=== PATIENT | female | born 1975 | race Caucasian/White ===

== ENCOUNTER 2017-08-03 12:42 | Emergency (ER) | payer MEDICAID ==
--- NOTE | 2017-08-03 11:59 | EDM.PDOCBH ---
ED HPI GENERAL MEDICAL PROBLEM - General Stated Complaint: PAIN Time Seen by Provider: 08/03/17 10:58 Source of Information: Reports: Patient, EMS History Limitations: Reports: Intoxication - History of Present Illness INITIAL COMMENTS - FREE TEXT/NARRATIVE: 41 y.o.w.f with a h/o of chronic ETOH abuse. ETOH liver disease, came to the ed after she was drinking whisky all day long. Pt denied any other acute medial issues. No family is present. BP 147/70 pulse 87 RR 18 Pulse ox 98% on RA Temp 36.6 Onset Date: 07/31/17 Onset Time: 07:00 Duration: Chronic, Intermittent Location: Reports: Generalized Quality: Reports: Other Improves with: Reports: Rest Worsens with: Reports: Movement Context: Reports: Other (chronic intermittant ETOH intoxiation) Lower back Pain Score (Numeric/FACES): 7 - Related Data Allergies Allergy/AdvReac Type Severity Reaction Status Date / Time No Known Allergies Allergy Verified 08/03/17 13:16 Home Meds: Home Meds Acetaminophen with Codeine [Tylenol with Codeine #3 Tablet] 1 each PO BID [History] Haloperidol [Haldol] 2 mg PO TID 08/03/17 [History] OLANZapine [ZyPREXA] 20 mg PO BEDTIME 08/03/17 [History] OXcarbazepine [Trileptal] 600 mg PO BID 08/03/17 [History] PARoxetine HCl [Paxil] 40 mg PO DAILY 08/03/17 [History] cloNIDine [Catapres] 0.2 mg PO BEDTIME 08/03/17 [History] ED ROS GENERAL - Review of Systems Review Of Systems: Unable To Obtain ED EXAM, BEHAVIORAL HEALTH - Physical Exam Exam: See Below Exam Limited By: Intoxication General Appearance: Alert, WD/WN, Mild Distress Eye Exam: Bilateral Eye: Normal Inspection Ears: Normal External Exam Nose: Normal Inspection Throat/Mouth: Normal Inspection, Normal Lips, Normal Voice, No Airway Compromise , Other (dry mucosal membrane) Head: Atraumatic, Normocephalic Neck: Normal Inspection, Supple, Non-Tender Respiratory/Chest: No Respiratory Distress, Lungs Clear, Normal Breath Sounds, No Accessory Muscle Use, Chest Non-Tender Cardiovascular: Normal Peripheral Pulses, Regular Rate, Rhythm, No Edema, No Gallop, No JVD, No Murmur, No Rub GI/Abdominal: Normal Bowel Sounds, Hepatomegaly (Female) Exam: Deferred Rectal (Female) Exam: Deferred Back Exam: Normal Inspection, Full Range of Motion Extremities: Normal Inspection, Normal Range of Motion, Non-Tender, No Pedal Edema, Normal Capillary Refill Neurological: Alert, Normal Mood/Affect, CN II-XII Intact, Oriented x 3, Memory Loss Recent Events Psychiatric: Alert, Normal Affect, Normal Cognition, Oriented, Flat Affect Skin Exam: Warm, Dry, Intact, Normal color, No rash COURSE, BEHAVIORAL HEALTH COMP - Course Vital Signs: Last Vital Signs Temp 36.8 C 08/03/17 16:36 Pulse 99 08/03/17 11:49 Resp 18 08/03/17 16:36 BP 141/76 H 08/03/17 16:36 Pulse Ox 97 08/03/17 16:36 41 y.o.w.f with a h/o of chronic ETOH abuse. ETOH liver disease, came to the ed after she was drinking whisky all day long. Pt denied any other acute medial issues. No family is present. BP 147/70 pulse 87 RR 18 Pulse ox 98% on RA Temp 36.6 PE: 41 y.o.w.f with h/o chronic ETOH Abuse and ETOH Liver disease, came to the ED intoxicated Labs: ETOH 0.19 CBC and BMP nl UDS neg Impression: Chronic ETOH abuse, H/O ETOH liver disease, ETOH intoxication Tx: NS Thyamin, Motrin Reexam: Improved Plan: D? with instructions by tax to [facility] detox Orders, Labs, Meds: Active Orders 24 hr Category Date Time Status DRUG SCREEN, URINE ALERE [URCHEM] Stat Lab 08/03/17 12:04 Ordered HCG QUALITATIVE,URINE [URCHEM] Stat Lab 08/03/17 12:04 Ordered UA W/MICROSCOPIC [URIN] Stat Lab 08/03/17 12:04 Ordered Sodium Chloride 0.9% [Normal Saline] 1,000 ml Med 08/03/17 12:00 Active IV .BOLUS Sodium Chloride 0.9% [Saline Flush] Med 08/03/17 13:00 Active 10 ml FLUSH ASDIRECTED PRN Saline Lock Insert [OM.PC] Routine Oth 08/03/17 13:00 Ordered Medication Orders Sodium Chloride (Normal Saline) 1,000 mls @ 999 mls/hr IV .BOLUS ALYX Last Admin: 08/03/17 13:00 Dose: 999 mls/hr Sodium Chloride (Saline Flush) 10 ml FLUSH ASDIRECTED PRN PRN Reason: Keep Vein Open Last Admin: 08/03/17 12:50 Dose: 10 ml Laboratory Tests 08/03/17 08/03/17 08/03/17 Range/Units 12:04 12:04 12:04 WBC (4.5-12.0) X10-3/uL RBC (3.23-5.20) x10(6)uL Hgb (11.5-15.5) g/dL Hct (30.0-51.3) % MCV (80-96) fL MCH (27.7-33.6) pg MCHC (32.2-35.4) g/dL RDW (11.5-15.5) % Plt Count (125-369) X10(3)uL MPV (7.4-10.4) fL Neut % (Auto) (46-82) % Lymph % (Auto) (13-37) % [place] % (Auto) (4-12) % Eos % (Auto) (1.0-5.0) % Baso % (Auto) (0-2) % Neut # (Auto) (1.6-8.3) # Lymph # (Auto) (0.6-5.0) # [place] # (Auto) (0.0-1.3) # Eos # (Auto) (0.0-0.8) # Baso # (Auto) (0.0-0.2) # Sodium (135-145) mmol/L Potassium (3.5-5.3) mmol/L Chloride (100-110) mmol/L Carbon Dioxide (21-32) mmol/L BUN (7-18) mg/dL Creatinine (0.55-1.02) mg/dL Est Cr Clr Drug Dosing Estimated GFR (MDRD) (>60) BUN/Creatinine Ratio (9-20) Glucose (80-116) mg/dL Calcium (8.6-10.2) mg/dL Urine Color Yellow (YELLOW) Urine Appearance Clear (CLEAR) Urine pH 7.0 H (5.0-6.5) Ur Specific [place] 1.010 (1.010-1.025) Urine Protein Negative (NEGATIVE) mg/dL Urine Glucose (UA) Normal (NEGATIVE) mg/dL Urine Ketones Negative (NEGATIVE) mg/dL Urine Occult Blood Negative (NEGATIVE) Urine Nitrite Negative (NEGATIVE) Urine Bilirubin Negative (NEGATIVE) Urine Urobilinogen 1 H (NEGATIVE) mg/dL Ur Leukocyte Esterase Negative (NEGATIVE) Urine WBC 0-5 (0) Ur Squamous Epith Cells Few H (NS,R,O) Urine Bacteria Moderate H (NS) Urine HCG, Qual Negative (NEGATIVE) Urine Opiates Screen Negative (NEGATIVE) Ur Oxycodone Screen Negative (NEGATIVE) Ur Propoxyphene Screen Negative (NEGATIVE) Ur Barbituates Screen Negative (NEGATIVE) Ur Tricyclics Screen Negative (NEGATIVE) Ur Phencyclidine Scrn Negative (NEGATIVE) Ur Amphetamine Screen Negative (NEGATIVE) Urine MDMA Screen Negative (NEGATIVE) U Benzodiazepines Scrn Negative (NEGATIVE) U Cocaine Metab Screen Negative (NEGATIVE) U Marijuana (THC) Screen Negative (NEGATIVE) Ethyl Alcohol (<0.03) % 08/03/17 08/03/17 08/03/17 Range/Units 12:25 12:25 12:25 WBC 6.5 (4.5-12.0) X10-3/uL RBC 4.19 (3.23-5.20) x10(6)uL Hgb 12.2 (11.5-15.5) g/dL Hct 36.2 (30.0-51.3) % MCV 86.4 (80-96) fL MCH 29.1 (27.7-33.6) pg MCHC 33.7 (32.2-35.4) g/dL RDW 13.7 (11.5-15.5) % Plt Count 349 (125-369) X10(3)uL MPV 6.6 L (7.4-10.4) fL Neut % (Auto) 53.8 (46-82) % Lymph % (Auto) 32.4 (13-37) % [place] % (Auto) 11.9 (4-12) % Eos % (Auto) 1 (1.0-5.0) % Baso % (Auto) 1 (0-2) % Neut # (Auto) 3.4 (1.6-8.3) # Lymph # (Auto) 2.1 (0.6-5.0) # [place] # (Auto) 0.8 (0.0-1.3) # Eos # (Auto) 0.1 (0.0-0.8) # Baso # (Auto) 0.1 (0.0-0.2) # Sodium 139 (135-145) mmol/L Potassium 4.0 (3.5-5.3) mmol/L Chloride 100 (100-110) mmol/L Carbon Dioxide 26 (21-32) mmol/L BUN 7 (7-18) mg/dL Creatinine 0.5 L (0.55-1.02) mg/dL Est Cr Clr Drug Dosing TNP Estimated GFR (MDRD) > 60 (>60) BUN/Creatinine Ratio 14.0 (9-20) Glucose 81 (80-116) mg/dL Calcium 8.6 (8.6-10.2) mg/dL Urine Color (YELLOW) Urine Appearance (CLEAR) Urine pH (5.0-6.5) Ur Specific [place] (1.010-1.025) Urine Protein (NEGATIVE) mg/dL Urine Glucose (UA) (NEGATIVE) mg/dL Urine Ketones (NEGATIVE) mg/dL Urine Occult Blood (NEGATIVE) Urine Nitrite (NEGATIVE) Urine Bilirubin (NEGATIVE) Urine Urobilinogen (NEGATIVE) mg/dL Ur Leukocyte Esterase (NEGATIVE) Urine WBC (0) Ur Squamous Epith Cells (NS,R,O) Urine Bacteria (NS) Urine HCG, Qual (NEGATIVE) Urine Opiates Screen (NEGATIVE) Ur Oxycodone Screen (NEGATIVE) Ur Propoxyphene Screen (NEGATIVE) Ur Barbituates Screen (NEGATIVE) Ur Tricyclics Screen (NEGATIVE) Ur Phencyclidine Scrn (NEGATIVE) Ur Amphetamine Screen (NEGATIVE) Urine MDMA Screen (NEGATIVE) U Benzodiazepines Scrn (NEGATIVE) U Cocaine Metab Screen (NEGATIVE) U Marijuana (THC) Screen (NEGATIVE) Ethyl Alcohol 0.19 H* (<0.03) % Medications Generic Name Dose Route Start Last Admin Trade Name Freq PRN Reason Stop Dose Admin Sodium Chloride 1,000 mls @ 999 mls/hr 08/03/17 12:00 08/03/17 13:00 Normal Saline IV 999 mls/hr .BOLUS ALYX Administration Sodium Chloride 10 ml 08/03/17 13:00 08/03/17 12:50 Saline Flush FLUSH 10 ml ASDIRECTED PRN Administration Keep Vein Open Discontinued Medications Generic Name Dose Route Start Last Admin Trade Name Baldo PRN Reason Stop Dose Admin Thiamine HCl 100 mg/ Sodium 101 mls @ 202 mls/hr 08/03/17 12:00 08/03/17 13: 03 Chloride IV 08/03/17 12:01 Not Given ONETIME ONE Ibuprofen 400 mg 08/03/17 15:08 08/03/17 15:32 Motrin PO 08/03/17 15:09 400 mg ONETIME ONE Administration Lorazepam 1 mg 08/03/17 12:06 08/03/17 12:55 Ativan IM 08/03/17 12:07 1 mg ONETIME STA Administration Thiamine HCl Confirm 08/03/17 12:44 08/03/17 13:02 Vitamin B-1 Administered 08/03/17 12:45 Not Given Dose 200 mg .ROUTE .STK-MED ONE Thiamine HCl 100 mg 08/03/17 12:52 08/03/17 12:54 Vitamin B-1 IM 08/03/17 12:53 100 mg ONETIME STA Administration Thiamine HCl 100 mg 08/03/17 12:53 08/03/17 13:02 Vitamin B-1 IM 08/03/17 12:54 Not Given ONETIME STA Departure - Departure Time of Disposition: 16:44 Disposition: Home, Self-Care 01 Condition: Fair Clinical Impression: ETOH abuse, Dehydration - Discharge Information Instructions: Alcohol Use Disorder, Alcohol Intoxication, [id number] Referrals: PCP,None [Primary Care Provider] - Forms: ED Department Discharge Additional Instructions: Activity as tolerated. Stop drinking!!! Discharged to [facility]. - My Orders Last 24 Hours: My Active Orders 08/03/17 12:00 Sodium Chloride 0.9% [Normal Saline] 1,000 ml IV .BOLUS 08/03/17 12:04 DRUG SCREEN, URINE ALERE [URCHEM] Stat HCG QUALITATIVE,URINE [URCHEM] Stat UA W/MICROSCOPIC [URIN] Stat 08/03/17 13:00 Sodium Chloride 0.9% [Saline Flush] 10 ml FLUSH ASDIRECTED PRN Saline Lock Insert [OM.PC] Routine - Assessment/Plan Last 24 Hours: My Active Orders 08/03/17 12:00 Sodium Chloride 0.9% [Normal Saline] 1,000 ml IV .BOLUS 08/03/17 12:04 DRUG SCREEN, URINE ALERE [URCHEM] Stat HCG QUALITATIVE,URINE [URCHEM] Stat UA W/MICROSCOPIC [URIN] Stat 08/03/17 13:00 Sodium Chloride 0.9% [Saline Flush] 10 ml FLUSH ASDIRECTED PRN Saline Lock Insert [OM.PC] Routine
[~2017-08-03 12:42] MED LIST: LORazepam 2 MG/ML SDV IM STA; Thiamine 100 MG in Sodium Chloride 0.9% 100 ML IV ONE
[2017-08-03] MEDS ORDERED: Thiamine 200 MG/2 ML MDV ONE (12:44)
[2017-08-03] MEDS: Sodium Chloride 0.9% 10 ML Syringe FLUSH PRN ×2 (12:50→14:25)
[2017-08-03] MEDS ORDERED: Thiamine 200 MG/2 ML MDV IM STA ×2 (12:52→12:53)
[2017-08-03] MEDS: Sodium Chloride 0.9% 1,000 ML IV SCH ×2 (13:00→14:25)
[2017-08-03] MEDS ORDERED: Ibuprofen 400 MG Tab PO ONE (15:08)
== END 2017-08-03 16:45 | disposition other institution (70) ==
LOC: FB.ED 12:42
DX: F10.129 Alcohol abuse with intoxication, unspecified (principal); E86.0 Dehydration; Y90.0 Blood alcohol level of less than 20 mg/100 ml; Z79.899 Other long term (current) drug therapy
CPT/HCPCS: 36415; 80048; 80305; 81001; 81025; 85025; 96360; 96361; 96372; 99284; A9270; G0480; J2060; J3411; J7030; J7050

== ENCOUNTER 2017-08-05 15:37 | Emergency (ER) | payer MEDICAID ==
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
[2017-08-05] MEDS ORDERED: Thiamine 200 MG/2 ML MDV IM STA (15:56)
[2017-08-05 16:49] LABS: ACETAMINOPHEN < 2 ug/mL (10-30)
[2017-08-05] MEDS: Sodium Chloride 0.9% 1,000 ML IV SCH ×2 (17:20→18:29)
== END 2017-08-05 19:25 | disposition home or self-care (01) ==
LOC: FB.ED 15:37
DX: F10.129 Alcohol abuse with intoxication, unspecified (principal); J44.9 Chronic obstructive pulmonary disease, unspecified; I10 Essential (primary) hypertension; E86.0 Dehydration; Y90.0 Blood alcohol level of less than 20 mg/100 ml
CPT/HCPCS: 36415; 80048; 80305; 85025; 96360; 96361; 96372; 99284; G0480; J3411; J7030